=== PATIENT | male | born 1955 | race Caucasian/White ===

== ENCOUNTER 2021-06-25 11:44 | Emergency (ER) | payer OTHER, SELFPAY ==
[~2021-06-25] VITALS: Ht 175.3 cm; Wt 86.2 kg
[2021-06-25 11:45] VITALS: BP_SYST 94
--- NOTE | 2021-06-25 11:45 | NUR ---
Patient to ER bed 08 to gown for evaluation. Side rails up.
--- NOTE | 2021-06-25 11:47 | NUR ---
Pt brought by ACLS, pt presents to ER with low blood pressure and dizziness, per family patient was unresponsive for aprox 2-5 minutes with eyes open, no shaking or foam was noted, pt returned to his baseline after episode, A&Ox4, no facial drop, intact ROM, skin pink and warm, cap refill <3, respirations even and unlabored, BS 141, BP 94/54 at this time, pt is following commands, will cont to monitor.
--- NOTE | 2021-06-25 11:50 | NUR ---
Dr Mace evaluating patient at bedside
[2021-06-25] MEDS ORDERED: NACL 0.9% 1,000 ML IV ONE (12:00)
[2021-06-25 12:10] LABS: BASOPHILS % (AUTO) 1.1 % (0.0-2.0); EOSINOPHILS # (AUTO) 0.1 K/uL (0.0-0.4); EOSINOPHILS % (AUTO) 2.6 % (0.0-4.0); HEMATOCRIT 42.5 % (36-54); HEMOGLOBIN 14.6 g/dL (14.0-18.0); LYMPHOCYTES # (AUTO) 0.9 K/uL (1.0-5.5); LYMPHOCYTES % (AUTO) 24.4 % (20.5-51.5); MEAN CORPUSCULAR HEMOGLOBIN 33 pg (27-31); MEAN CORPUSCULAR HGB CONC 34 % (32-36); MEAN CORPUSCULAR VOLUME 95 fL (79.0-98.0); MONOCYTES # (AUTO) 0.3 K/uL (0.0-1.0); MONOCYTES % (AUTO) 7.7 % (1.7-9.3); NEUTROPHILS # (AUTO) 2.4 K/uL (1.8-7.7); NEUTROPHILS % (AUTO) 64.2 % (40.0-70.0); PLATELET COUNT (AUTO) 196 K/uL (130-430); RED BLOOD CELL COUNT(AUTO) 4.48 MIL/uL (4.2-6.2); RED CELL DISTRIBUTION WIDTH 15.7 % (9.0-15.0); WHITE BLOOD COUNT (AUTO) 3.7 K/uL (4.8-10.8)
[2021-06-25 12:23] LABS: CALCIUM 7.9 mg/dL (8.4-11.0); CREATININE 1.12 mg/dL (0.55-1.30); POTASSIUM 3.9 mmol/L (3.5-5.1)
[2021-06-25 12:26] LABS: INR 1.3 (0.80-1.20); PROTHROMBIN TIME 13.4 SECS (9.5-12.5)
[2021-06-25 12:29] LABS: ALBUMIN 3.5 g/dL (3.4-4.8); TOTAL BILIRUBIN 0.6 mg/dL (0.0-1.0)
--- NOTE | 2021-06-25 12:49 | NUR ---
Pt A&OX4, VSS respirations even and unlabored
--- NOTE | 2021-06-25 13:53 | NUR ---
Report called to [facility], spoke with Chayo HAWKINS, pt A&Ox4, VSS.
[2021-06-25] MEDS ORDERED: PANTOPRAZOLE SODIUM 40 MG TAB PO ONE (14:15)
--- NOTE | 2021-06-25 14:30 | NUR ---
Pt A&Ox4, VSS, respirations even and unlabored
--- NOTE | 2021-06-25 15:11 | NUR ---
Patient to be transferred to [facility] . Is being transferred due to higher level of care. Receiving facility has accepting physician and available space. ER physician has signed transfer form. Patient or responsible libertarian has agreed to transfer and signed form. Patient belongings inventoried and will be sent with patient. Copy of nursing notes, lab reports, EKG, Physicians Orders and X-rays to be sent with patient. Report called to Chayo HAWKINS at receiving facility. Receiving physician is Dr Martinez . ambulance service has been called for transfer.
[2021-06-25 15:13] VITALS: BP_SYST 136
== END 2021-06-25 15:13 | disposition short-term general hospital (02) ==
LOC: SED 11:44
DX: G45.9 Transient cerebral ischemic attack, unspecified (principal); Z88.0 Allergy status to penicillin; Z20.822 Contact with and (suspected) exposure to COVID-19
CPT/HCPCS: 36415; 71045; 80053; 82962; 83605; 84484; 85025; 85610; 85730; 87426; 93005; 96360; 99285; J7030